=== PATIENT | male | born 1975 | race Two or more races ===

== ENCOUNTER → 2024-04-07 01:28 | Outpatient (CLI) | payer BC, SELFPAY ==
--- NOTE | 2024-04-07 10:18 | DI.RAD_ITS ---
Exam(s) XR ANKLE LT COMPLETE EXAM: XR ANKLE LT COMPLETE CLINICAL HISTORY: Left ankle pain, M25.572. TECHNIQUE: 2D digital imaging was performed. COMPARISON: No exams were available for comparison FINDINGS: 3 views No evidence of fracture or widening the ankle mortise. Talar dome unremarkable. No obvious degenera tive changes in the tibiotalar-ankle joint and subtalar joint. No evidence of osseous tarsal coaliti on. There appears to be pes planus. IMPRESSION: No acute osseous findings in the ankle but there does appear to be pes planus. DATA REPOSITORY: RADIATION DOSE DELIVERED:
== END ==
PROVIDERS: PCP Family Medicine; Visit Provider Podiatrist
DX: M25.572 Pain in left ankle and joints of left foot (principal)
CPT/HCPCS: 73610

== ENCOUNTER 2024-06-14 09:55 | Outpatient (CLI) | payer BC, SELFPAY ==
--- NOTE | 2024-06-14 09:30 | DI.RAD_ITS ---
Exam(s) XR FOOT LT COMPLETE XR HEEL LT OS CALCIS EXAM: XR FOOT LT COMPLETE and XR heel LT os calcis CLINICAL HISTORY: PTTD,pes planus,pain lt foot,m21.42,m76.822,m79.672. TECHNIQUE: 2D digital imaging was performed of the left os calcis and foot. Five images were obtain ed. AP, oblique and lateral views were obtained. COMPARISON: CR XR ANKLE LT COMPLETE from 04/07/2024 FINDINGS: BONES: No acute fracture is present. No bony destructive lesion is seen. There is pes planus. JOINTS: No dislocation present. There is a hallux valgus deformity. Joint spaces are well maintained . SOFT TISSUE: Normal. IMPRESSION: Hallux valgus and pes planus. DATA REPOSITORY: RADIATION DOSE DELIVERED:
== END 2024-06-14 10:15 ==
PROVIDERS: PCP Family Medicine; Visit Provider Podiatrist
DX: M21.42 Flat foot [pes planus] (acquired), left foot; M76.822 Posterior tibial tendinitis, left leg
CPT/HCPCS: 73630; 73650